=== PATIENT | female | born 1945 ===

== ENCOUNTER → 2022-05-25 13:28 | Outpatient (CLI) | payer MEDICARE, SELFPAY ==
--- NOTE | ~2022-05-25 | MR_ITS ---
EXAMINATION: MR knee RT wo con DATE: 05/25/2022 14:12 INDICATION: Primary osteoarthritis of the right knee with posterior and lateral right knee pain TECHNIQUE: Magnetic resonance imaging (MRI) of the right knee was performed without intravenous contr ast. Sequences included coronal PD-weighted FSE, coronal PD-weighted FS FSE, sagittal T2-weighted FS E, sagittal PD-weighted FS FSE and axial PD weighted fat saturated FSE. COMPARISON: None. FINDINGS: Medial compartment: Complex tear of the medial meniscus with increased signal extending to contact the inferior articular surface extending obliquely from the inner free edge at the lateral aspect of the posterior horn and extending peripherally to the posterior third at the junction of the body and posterior horn. [place] w chondral surface regularity along the anterior weightbearing medial femoral condyle. Deep partial-t hickness chondral fissuring at the central weightbearing medial femoral condyle with tiny focus of ne gligible increased subarticular marrow signal. Lateral compartment: Complex tear of the body and posterior horn of the lateral meniscus with longitudinal horizontal tear plane extending to the inferior articular surface at the inner third, crossing the inner free edge a t the junction of the body and posterior horn extending to the superior articular surface at the meni scal body. There is a more macerated appearance to the anterior horn of the medial meniscus. Extensiv e full/near full-thickness chondral ulceration along the lateral tibial plateau with mild subarticula r edema-like signal change centrally. Additional deep chondral ulceration along the central to collection systems administrator ior weightbearing lateral femoral condyle. There is prominent marrow edema in the lateral femoral con dyle centered along the lateral margin where there is a shallow concavity with depression of the bone extending 3 cm AP and involving the bone uptake to 7 mm medial to the rim of the articular surface. There is elevation of the overlying articular cartilage with intervening small amount of fluid. It is unclear whether this represents a strictly chondral loose in situ chondral fragment or whether it re presents osteochondral fragment remaining attached to elevated articular cortex. Patellofemoral compartment: Partial-thickness patellar cartilage loss with scattered deep chondral fissuring at both the medial a nd lateral patellar facets. There is small region of deep chondral ulceration at the cephalad aspect of the patellar apical ridge. Trochlear cartilage appears relatively preserved. Ligaments and tendons: Partial tear of the posterolateral bundle of the anterior cruciate ligament with the thickened amorph ous appearing distal torn portion of the tendon reflected anterior to the tibial footplate consistent with a cyclops lesion. Well-defined linear fluid signal intensity longitudinal split tear extending between the otherwise intact and taut-appearing ligament fibers of the anteromedial bundle. The split tear separates the anteromedial bundle between the anterior third and posterior two thirds of the cr oss-sectional area of the frontal. The medial collateral ligament is normal. Mild thickening and mild increased signal at the proximal fibular collateral ligament without surrounding edema to suggest ac [place] injury consistent with scarring related to chronic sprain. There is feathery muscular edema along the myotendinous junction of the popliteus tendon consistent with low-grade strain. The extensor mec hanism is normal. The visualized medial and lateral hamstring tendons as well as the iliotibial band are normal. Fluid: Moderate-sized right knee joint effusion. No loose osteochondral bodies identified. Mild prepatellar edema without discrete bursal fluid collection. IMPRESSION: 1. Partial anterior cruciate ligament tear involving the posterolateral bundle with lo
== END ==
PROVIDERS: PCP Family Medicine; Visit Provider Orthopaedic Surgery
DX: M17.11 Unilateral primary osteoarthritis, right knee (principal); S83.281A Other tear of lateral meniscus, current injury, right knee, initial encounter; S83.271A Complex tear of lateral meniscus, current injury, right knee, initial encounter; S83.511A Sprain of anterior cruciate ligament of right knee, initial encounter; M25.461 Effusion, right knee
CPT/HCPCS: 73721